=== PATIENT | male | born 2000 | race Caucasian/White ===

== ENCOUNTER 2024-08-06 16:49 | Emergency (ER) | payer BC, SELFPAY ==
[~2024-08-06] VITALS: Ht 172.7 cm; Wt 86.8 kg
[2024-08-06] MEDS ORDERED: AMOX875T2 PO (18:31)
[2024-08-06] MEDS ORDERED: IBUP-1022 PO (18:31)
[2024-08-06] MEDS: IBUPROFEN 600MG TAB PO ONE (18:39)
[2024-08-06] MEDS: AUGMENTIN 875 MG TAB PO ONE (18:39)
[2024-08-06 18:40] VITALS: BP 124/65; TEMP 98.6; O2SAT 96
== END 2024-08-06 18:40 | disposition home or self-care (01) ==
LOC: M ED 16:49
DX: K04.7 Periapical abscess without sinus (principal); F12.10 Cannabis abuse, uncomplicated; F10.10 Alcohol abuse, uncomplicated; Z79.1 Long term (current) use of non-steroidal anti-inflammatories (NSAID); Z79.2 Long term (current) use of antibiotics

== ENCOUNTER 2024-08-21 13:22 | Emergency (ER) | payer SELFPAY ==
[~2024-08-21] VITALS: Ht 172.7 cm; Wt 86.9 kg
[~2024-08-21 13:22] MED LIST: AMOX875T2 PO; IBUP-1022 PO
[2024-08-21 15:00] LABS: BASO # 0.1 10^3/uL (0.0-0.2); EOS # 0.1 10^3/uL (0.0-0.5); EOS % 2.1 % (0.0-3.0); HEMATOCRIT 40.8 % (42.0-52.0); HEMOGLOBIN 13.7 g/dl (13.5-17.5); LYMPH % 31.4 % (24.0-44.0); MEAN CORPUSCULAR HEMOGLOBIN 31.5 pg (27.0-33.0); MEAN CORPUSCULAR HGB CONC 33.6 g/dl (32.0-36.5); MEAN CORPUSCULAR VOLUME 93.8 fl (80.0-96.0); MONO # 0.4 10^3/uL (0.0-0.8); NEUTROPHILS # 3.6 10^3/uL (1.5-8.5); NEUTROPHILS % 58.2 % (36.0-66.0); PLATELET COUNT, AUTOMATED 188 10^3/uL (150-450); RED BLOOD COUNT 4.35 10^6/uL (4.30-6.10); WHITE BLOOD COUNT 6.3 10^3/uL (4.0-10.0)
[2024-08-21 15:05] LABS: ERYTHROCYTE SEDIMENTATION RATE < 1 mm/hr (0-15)
[2024-08-21] MEDS ORDERED: ISOVUE-370 76% 100ML VIAL As Ordered ONE (15:16)
[2024-08-21] MEDS: NS (Normal Saline) 0.9% 1,000 ML IV ONE (17:14)
[2024-08-21] MEDS: dexAMETHasone 20MG/5ML VIAL IV ONE (17:14)
[2024-08-21 18:02] VITALS: BP 118/77; TEMP 98.7; O2SAT 99
== END 2024-08-21 19:01 | disposition home or self-care (01) ==
LOC: M ED 13:22
DX: K11.6 Mucocele of salivary gland (principal); Z79.1 Long term (current) use of non-steroidal anti-inflammatories (NSAID); Z79.2 Long term (current) use of antibiotics
CPT/HCPCS: 70491; 80047; 85025; 85652; 86140; 96361; 96374; 99284; J1100; Q9967